=== PATIENT | male | born 1980 | race Caucasian/White ===

== ENCOUNTER 2017-09-24 12:56 | Emergency (ER) | payer SELFPAY ==
[~2017-09-24] VITALS: Ht 175.3 cm; Wt 90.0 kg
[2017-09-24] MEDS ORDERED: ACETAMINOPHEN 500MG TABLET PO ONE (14:45)
[2017-09-24] MEDS ORDERED: BACITRACIN ZINC OINT UDPKT TOP ONE (16:00)
[2017-09-24 16:59] VITALS: BP 134/86
== END 2017-09-24 17:00 | disposition home or self-care (01) ==
LOC: ER 14:21
DX: S50.02XD Contusion of left elbow, subsequent encounter (principal); F15.10 Other stimulant abuse, uncomplicated; F14.10 Cocaine abuse, uncomplicated; F17.200 Nicotine dependence, unspecified, uncomplicated; X58.XXXD Exposure to other specified factors, subsequent encounter
CPT/HCPCS: 73070; 99284

== ENCOUNTER 2017-09-25 01:34 | Emergency (ER) | payer SELFPAY ==
[~2017-09-25] VITALS: Ht 177.8 cm; Wt 75.0 kg
[2017-09-25] MEDS ORDERED: BACITRACIN ZINC OINT UDPKT TOP ONE (05:30)
[2017-09-25 05:42] VITALS: BP 120/70
== END 2017-09-28 02:46 | disposition home or self-care (01) ==
LOC: ER 09-28 02:46
DX: T81.31XA Disruption of external operation (surgical) wound, not elsewhere classified, initial encounter (principal); F12.10 Cannabis abuse, uncomplicated; F14.10 Cocaine abuse, uncomplicated; Z87.828 Personal history of other (healed) physical injury and trauma; V19.9XXA Pedal cyclist (driver) (passenger) injured in unspecified traffic accident, initial encounter; Y83.8 Other surgical procedures as the cause of abnormal reaction of the patient, or of later complication, without mention of misadventure at the time of the procedure; Y93.55 Activity, bike riding; Y92.89 Other specified places as the place of occurrence of the external cause
CPT/HCPCS: 12001; 99283; Z7610

== ENCOUNTER 2017-09-28 17:26 | Emergency (ER) | payer SELFPAY ==
[~2017-09-28] VITALS: Ht 177.8 cm; Wt 90.0 kg
[2017-09-28] MEDS ORDERED: DOXYCYCLINE HYCLATE 100MG CAPSULE PO ONE (23:15)
[2017-09-28 23:51] VITALS: BP 140/70
== END 2017-09-28 23:52 | disposition home or self-care (01) ==
LOC: ER 17:26
DX: Z48.02 Encounter for removal of sutures (principal)
CPT/HCPCS: 93005; 99283; Z7610

== ENCOUNTER 2019-09-17 06:54 | Emergency (ER) | payer MEDICAID ==
[~2019-09-17] VITALS: Ht 177.8 cm; Wt 75.0 kg
[2019-09-17] MEDS ORDERED: LIDOCAINE HCL/PF 1% 10 MG/ML 5ML VIAL IJ ONE (07:45)
[2019-09-17 08:28] LABS: CLARITY URINE CLOUDY (CLEAR); COLOR URINE YELLOW (YELLOW); KETONES URINE NEGATIVE (NEGATIVE); LEUKOCYTE ESTERASE URINE NEGATIVE (NEGATIVE); NITRITE URINE NEGATIVE (NEGATIVE); OCCULT BLOOD URINE NEGATIVE (NEGATIVE); PH URINE 6.5 (4.5-8.0); PROTEIN URINE NEGATIVE (NEGATIVE); SPECIFIC GRAVITY URINE 1.018 (1.005-1.030)
[2019-09-17 08:36] LABS: CHLORIDE 105 mEq/L (98-107)
[2019-09-17 08:37] LABS: BASOPHILS % 0.7 % (0.0-2.0); EOSINOPHILS % 3.1 % (0.0-5.0); HEMATOCRIT. 28.9 % (42.0-52.0); HEMOGLOBIN. 9.7 g/dL (14.0-18.0); LYMPHOCYTES % 24.4 % (20.0-50.0); MEAN CORPUSCULAR HEMOGLOBIN 27.1 pg (28.0-32.0); MEAN CORPUSCULAR VOLUME 80.6 fL (80.0-94.0); MEAN PLATELET VOLUME 6.9 fl (7.4-10.4); MONOCYTES % 11.2 % (2.0-8.0); NEUTROPHILS % 60.6 % (40.0-76.0); PLATELET 450 x1000/uL (130-400); RED BLOOD CELL COUNT 3.59 mill/uL (4.7-6.1); RED CELL DISTRIBUTION WIDTH 18.2 % (11.6-14.6)
[2019-09-17 08:50] LABS: INR 1.1; PROTHROMBIN TIME 11.2 sec (9.6-11.0)
[2019-09-17] MEDS ORDERED: VANCOMYCIN 1 G PREMIX 200 ML IV ONE (09:30)
[2019-09-17] MEDS ORDERED: PIPERACILLIN/TAZ 3.375G PREMIX 50 ML IV ONE (09:30)
[2019-09-17] MEDS ORDERED: HYDROCODONE/ACETAMINOPHEN 5/325MG TABLET PO ONE (16:30)
[2019-09-17 17:18] VITALS: BP 123/59
== END 2019-09-17 18:24 | disposition left against medical advice (07) ==
LOC: ER 06:54 → CANRESERV 16:23 → ENRESERV 16:23 → ER 18:24 → CANBEDREQ 19:42
DX: L02.91 Cutaneous abscess, unspecified (principal); F12.10 Cannabis abuse, uncomplicated; F14.10 Cocaine abuse, uncomplicated; Z96.642 Presence of left artificial hip joint
CPT/HCPCS: 10060; 36415; 72193; 80053; 81003; 85025; 85610; 85651; 86141; 87086; 96365; 96367; 99285; J2543; J3370

== ENCOUNTER 2019-10-08 22:45 | Inpatient (IN) | payer MEDICAID ==
[~2019-10-08] VITALS: Ht 177.8 cm; Wt 80.9 kg
[2019-10-08] MEDS ORDERED: SODIUM CHLORIDE 0.9% 1,000 ML IV ONE (23:08)
[2019-10-08] MEDS ORDERED: ONDANSETRON HCL 4MG/2ML INJ IV STA (23:08)
[2019-10-08] MEDS ORDERED: NALOXONE HCL 0.4 MG/ML 1ML VIAL IM ONE (23:15)
[2019-10-08 23:51] LABS: CHLORIDE 101 mEq/L (98-107)
[2019-10-08 23:55] LABS: ETHANOL BLOOD 106 mg/dL
[2019-10-08 23:56] LABS: BASOPHILS % 0.5 % (0.0-2.0); EOSINOPHILS % 2.5 % (0.0-5.0); HEMOGLOBIN. 11.6 g/dL (14.0-18.0); LYMPHOCYTES % 31.8 % (20.0-50.0); MEAN CORPUSCULAR HEMOGLOBIN 27.6 pg (28.0-32.0); MEAN CORPUSCULAR VOLUME 83.4 fL (80.0-94.0); MEAN PLATELET VOLUME 7.3 fl (7.4-10.4); NEUTROPHILS % 60.2 % (40.0-76.0); PLATELET 513 x1000/uL (130-400); RED CELL DISTRIBUTION WIDTH 18.6 % (11.6-14.6)
[2019-10-09] MEDS ORDERED: NALOXONE HCL 0.4 MG/ML 1ML VIAL ONE (04:57)
[2019-10-09] MEDS ORDERED: NALOXONE HCL 1 MG/ML 2ML VIAL ONE ×2 (04:58→11:54)
[2019-10-09] MEDS ORDERED: SODIUM CHLORIDE 0.9% 1,000 ML IV NR (05:00)
[2019-10-09] MEDS ORDERED: NALOXONE HCL 0.4 MG/ML 1ML VIAL IV ONE ×2 (05:00→12:00)
[2019-10-09] MEDS ORDERED: NALOXONE HCL 1 MG/ML 2ML VIAL IM ONE (05:00)
[2019-10-09 05:24] LABS: *BARBITURATES SCREEN URINE NEGATIVE (NEGATIVE)
[2019-10-09 05:25] LABS: *AMPHETAMINES SCREEN URINE NEGATIVE (NEGATIVE); *BENZODIAZEPINES SCREEN URINE NEGATIVE (NEGATIVE); *COCAINE SCREEN URINE PRESUMTIVE POSITIVE (NEGATIVE); METHADONE URINE SCREEN NEGATIVE (NEGATIVE); OPIATES URINE SCREEN NEGATIVE (NEGATIVE); PHENCYCLIDINE URINE SCREEN NEGATIVE (NEGATIVE)
[2019-10-09 05:26] LABS: CANNABINOID URINE SCREEN PRESUMTIVE POSITIVE (NEGATIVE)
[2019-10-09] MEDS ORDERED: MAGNESIUM/ALUMINUM HYDROXIDE/SIMETHICONE 30ML UDC PO PRN (10:00)
[2019-10-09] MEDS ORDERED: CLONIDINE 0.1MG TABLET PO PRN (10:00)
[2019-10-09] MEDS ORDERED: ONDANSETRON HCL 4MG/2ML INJ IV PRN (10:00)
[2019-10-09] MEDS ORDERED: ACETAMINOPHEN 325MG TABLET PO PRN ×2 (10:00)
[2019-10-09] MEDS ORDERED: MVI, ADULT NO.1 10 ML, FOLIC ACID 1 MG, THIAMINE HCL 100 MG in SODIUM CHLORIDE 0.9% 1,0... IV SCH ×4 (11:00)
[2019-10-09] MEDS: ENOXAPARIN 40MG/0.4ML SYR SUBCUT SCH (11:54)
[2019-10-09] MEDS ORDERED: METHYLPREDNISOLONE SOD SUCC 125 MG/2 ML VIAL IV NR (14:45)
[2019-10-09] MEDS ORDERED: LEVOFLOXACIN 500MG PREMIX 100 ML IV SCH (15:00)
[2019-10-09 15:40] LABS: BG BASE EXCESS -11.4 mmol/L (-2.0-2.0); BG DEOXYHEMOGLOBIN 1.3 % (0.0-5.0); BG FRACTION INSPIRED OXYGEN 100; BG HCO3 ACT 19.1 mmol/L (22.0-26.0); BG METHEMOGLOBIN 0.5 % (0.0-1.5); BG OXYGEN SATURATION 98.7 % (92.0-98.5); BG OXYHEMOGLOBIN 98.2 % (94.0-97.0); BG PCO2 65.5 mmHg (35.0-45.0); BG PH 7.082 (7.350-7.450); BG PO2 174.9 mmHg (75.0-100.0); BG SAMPLE SITE RIGHT RADIAL; BG TOTAL HEMOGLOBIN 12.2 g/dL (12.0-18.0); BG VENT MODE MASK - NRB
[2019-10-09] MEDS: IPRATROPIUM/ALBUTEROL 0.5-3(2.5)MG/3ML NEB HHN SCH ×2 (16:44→19:42)
[2019-10-09] MEDS ORDERED: NALOXONE HCL 0.4 MG/ML 1ML VIAL IV NR (17:00)
[2019-10-09] MEDS ORDERED: DEXT 5%/0.45% NACL 1000ML 1,000 ML IV SCH (18:15)
[2019-10-09] MEDS: DEXT 5% IV NR (18:44)
[2019-10-09] MEDS: WATER IV NR (18:44)
[2019-10-09] MEDS: NALOXONE IV NR (18:44)
[2019-10-09] MEDS: FAMOTIDINE 20MG/2ML VIAL IV SCH (23:12)
[2019-10-10] MEDS: IPRATROPIUM/ALBUTEROL 0.5-3(2.5)MG/3ML NEB HHN SCH ×2 (00:39→04:26)
[2019-10-10 05:00] LABS: HEMATOCRIT. 32.5 % (42.0-52.0); HEMOGLOBIN. 10.7 g/dL (14.0-18.0); MEAN CORPUSCULAR HEMOGLOBIN 26.9 pg (28.0-32.0); MEAN CORPUSCULAR VOLUME 81.8 fL (80.0-94.0); MEAN PLATELET VOLUME 7.2 fl (7.4-10.4); PLATELET 289 x1000/uL (130-400); RED BLOOD CELL COUNT 3.98 mill/uL (4.7-6.1); RED CELL DISTRIBUTION WIDTH 18.7 % (11.6-14.6)
[2019-10-10 05:14] LABS: CHLORIDE 104 mEq/L (98-107)
[2019-10-10] MEDS: ENOXAPARIN 40MG/0.4ML SYR SUBCUT SCH (09:00)
[2019-10-10] MEDS: FAMOTIDINE 20MG/2ML VIAL IV SCH ×2 (09:00→21:00)
[2019-10-10 09:47] LABS: PLATELET ESTIMATE NORMAL
[2019-10-10 10:02] LABS: BG BASE EXCESS -9.1 mmol/L (-2.0-2.0); BG CARBOXYHEMOGLOBIN 0.3 % (0.5-1.5); BG DEOXYHEMOGLOBIN 1.7 % (0.0-5.0); BG FRACTION INSPIRED OXYGEN 28; BG HCO3 ACT 18.1 mmol/L (22.0-26.0); BG METHEMOGLOBIN 0.3 % (0.0-1.5); BG OXYGEN SATURATION 98.3 % (92.0-98.5); BG OXYHEMOGLOBIN 97.7 % (94.0-97.0); BG PCO2 44.3 mmHg (35.0-45.0); BG PH 7.229 (7.350-7.450); BG PO2 135.9 mmHg (75.0-100.0); BG SAMPLE SITE RIGHT RADIAL; BG TOTAL HEMOGLOBIN 10.9 g/dL (12.0-18.0); BG VENT MODE NASAL CANNULA
[2019-10-10 11:59] LABS: CREATINE KINASE 5041 IU/L (39-308)
[2019-10-10] MEDS ORDERED: SODIUM BICARBONATE 8.4% 1 MEQ/ML 50ML SYR IV STA (12:02)
[2019-10-10] MEDS: SODIUM BICARBONATE 100 MEQ in SODIUM CHLORIDE 0.45% 1,000 ML IV SCH (14:00)
[2019-10-10] MEDS ORDERED: IPRATROPIUM/ALBUTEROL 0.5-3(2.5)MG/3ML NEB HHN PRN (14:45)
[2019-10-10] MEDS: LEVOFLOXACIN 250MG PREMIX 50 ML IV SCH (15:51)
[2019-10-10] MEDS: NALOXONE IV NR (18:03)
[2019-10-10] MEDS: WATER IV NR (18:03)
[2019-10-10] MEDS: DEXT 5% IV NR (18:03)
[2019-10-10 20:22] LABS: CLARITY URINE CLEAR (CLEAR); COLOR URINE YELLOW (YELLOW); KETONES URINE NEGATIVE (NEGATIVE); LEUKOCYTE ESTERASE URINE NEGATIVE (NEGATIVE); NITRITE URINE NEGATIVE (NEGATIVE); OCCULT BLOOD URINE NEGATIVE (NEGATIVE); PROTEIN URINE 1+ (NEGATIVE); SPECIFIC GRAVITY URINE 1.017 (1.005-1.030); UROBILINOGEN URINE 0.2 E.U./dL (0.2-1.0)
[2019-10-10 23:31] VITALS: BP 122/85
[2019-10-11] VITALS (7 sets, daily range): BP systolic 104–147; BP diastolic 58–82
[2019-10-11] MEDS ORDERED: PNEUMOCOCCAL 23-VAL P-SAC VAC 0.5 ML IM ONE (03:45)
[2019-10-11] MEDS: SODIUM BICARBONATE 100 MEQ in SODIUM CHLORIDE 0.45% 1,000 ML IV SCH (04:35)
[2019-10-11 06:04] LABS: CHLORIDE 105 mEq/L (98-107)
[2019-10-11 06:11] LABS: HEMATOCRIT. 28.6 % (42.0-52.0); HEMOGLOBIN. 9.3 g/dL (14.0-18.0); MEAN CORPUSCULAR HEMOGLOBIN 26.2 pg (28.0-32.0); MEAN CORPUSCULAR VOLUME 80.5 fL (80.0-94.0); MEAN PLATELET VOLUME 7.5 fl (7.4-10.4); PLATELET 293 x1000/uL (130-400); RED BLOOD CELL COUNT 3.55 mill/uL (4.7-6.1); RED CELL DISTRIBUTION WIDTH 18.7 % (11.6-14.6)
[2019-10-11 06:27] LABS: CREATINE KINASE 2396 IU/L (39-308)
[2019-10-11] MEDS: FAMOTIDINE 20MG/2ML VIAL IV SCH ×2 (09:33→21:25)
[2019-10-11] MEDS: MULTIVITAMINS,THER W-MINERALS TABLET PO SCH (09:33)
[2019-10-11] MEDS: THIAMINE HCL 100MG TABLET PO SCH (09:33)
[2019-10-11] MEDS: ENOXAPARIN 40MG/0.4ML SYR SUBCUT SCH (09:33)
[2019-10-11] MEDS: FOLIC ACID 1MG TABLET PO SCH (09:33)
[2019-10-11 09:55] LABS: PLATELET ESTIMATE NORMAL
[2019-10-11] MEDS: SODIUM CHLORIDE 0.9% 1,000 ML IV SCH (13:23)
[2019-10-11] MEDS: LEVOFLOXACIN 250MG PREMIX 50 ML IV SCH (15:05)
[2019-10-12] VITALS: BP 124/75
[2019-10-12] MEDS: SODIUM CHLORIDE 0.9% 1,000 ML IV SCH ×2 (00:28→09:39)
[2019-10-12 04:00] VITALS: BP 136/87
[2019-10-12 06:25] LABS: BASOPHILS % 0.3 % (0.0-2.0); EOSINOPHILS % 0.1 % (0.0-5.0); HEMATOCRIT. 29.8 % (42.0-52.0); HEMOGLOBIN. 9.9 g/dL (14.0-18.0); MEAN CORPUSCULAR HEMOGLOBIN 26.7 pg (28.0-32.0); MEAN CORPUSCULAR VOLUME 80.5 fL (80.0-94.0); MEAN PLATELET VOLUME 7.6 fl (7.4-10.4); MONOCYTES % 7.7 % (2.0-8.0); NEUTROPHILS % 69.9 % (40.0-76.0); PLATELET 277 x1000/uL (130-400); RED BLOOD CELL COUNT 3.71 mill/uL (4.7-6.1); RED CELL DISTRIBUTION WIDTH 19.2 % (11.6-14.6)
[2019-10-12 06:35] LABS: CHLORIDE 111 mEq/L (98-107)
[2019-10-12 06:44] LABS: CREATINE KINASE 808 IU/L (39-308)
[2019-10-12 08:00] VITALS: BP 135/85
[2019-10-12] MEDS: FAMOTIDINE 20MG/2ML VIAL IV SCH (08:47)
[2019-10-12] MEDS: MULTIVITAMINS,THER W-MINERALS TABLET PO SCH (08:48)
[2019-10-12] MEDS: ENOXAPARIN 40MG/0.4ML SYR SUBCUT SCH (08:48)
[2019-10-12] MEDS: THIAMINE HCL 100MG TABLET PO SCH (08:48)
[2019-10-12] MEDS: FOLIC ACID 1MG TABLET PO SCH (08:48)
[2019-10-12 12:00] VITALS: BP 119/86
[2019-10-12 14:55] VITALS: BP 128/87
[2019-10-13] MEDS ORDERED: LEVOFLOXACIN 500MG TABLET PO SCH (11:00)
== END 2019-10-12 16:05 | disposition home or self-care (01) | DRG 812 ==
LOC: ER 22:45 → MICUSO 10-09 05:16 → EDBEDREQSVC 10-09 16:05 → EDBEDREQTM 10-09 20:26 → EDBEDREQSVC 10-09 20:26 → CANRESERV 10-09 20:27 → ENRESERV 10-09 20:27 → EDBEDREQSVC 10-09 20:33 → ENRESERV 10-10 21:48 → 5EST 10-10 22:54
PROVIDERS: ADMIT Internal Medicine; ATTEND Internal Medicine
PROC: 5A09357 Assistance with Respiratory Ventilation, Less than 24 Consecutive Hours, Continuous Positive Airway Pressure (ICD-10-PCS; principal; 2019-10-09)
DX: T40.4X1A Poisoning by other synthetic narcotics, accidental (unintentional), initial encounter (principal); N17.0 Acute kidney failure with tubular necrosis; J96.00 Acute respiratory failure, unspecified whether with hypoxia or hypercapnia; N18.9 Chronic kidney disease, unspecified; M62.82 Rhabdomyolysis; J68.0 Bronchitis and pneumonitis due to chemicals, gases, fumes and vapors; J20.9 Acute bronchitis, unspecified; G92 Toxic encephalopathy; E43 Unspecified severe protein-calorie malnutrition; K72.00 Acute and subacute hepatic failure without coma; E87.1 Hypo-osmolality and hyponatremia; D64.9 Anemia, unspecified; E87.4 Mixed disorder of acid-base balance; F14.10 Cocaine abuse, uncomplicated; I27.20 Pulmonary hypertension, unspecified; J84.9 Interstitial pulmonary disease, unspecified; I95.9 Hypotension, unspecified; R73.9 Hyperglycemia, unspecified; J96.01 Acute respiratory failure with hypoxia; Z87.81 Personal history of (healed) traumatic fracture; Y92.89 Other specified places as the place of occurrence of the external cause; Z68.25 Body mass index [BMI] 25.0-25.9, adult
CPT/HCPCS: 36415; 36600; 71045; 76770; 80048; 80053; 80305; 80320; 81003; 82375; 82550; 82805; 83036; 83735; 84100; 85025; 90732; 93005; 93306; 94640; 94660; 99291; J1650; J1956; J2310; J2405; J2930; J3411; J3490; J7030; J7060; G0480